=== PATIENT | male | born 1985 | race Caucasian/White ===

== ENCOUNTER → 2018-01-02 | Outpatient (CLI) | payer BC ==
--- NOTE | 2018-01-02 11:02 | DIAGNOSTIC IMAGING REPORT ---
LEFT FOOT 3 VIEWS HISTORY: Left foot injury and pain. COMPARISON: None. FINDINGS: There is no fracture or dislocation. Soft tissue swelling medially. The Lisfranc joint is well aligned. Cystic focus at the base of the proximal pharynx of the first toe. This may be due to an old injury or degenerative change. No radiopaque foreign bodies. IMPRESSION: No fractures. Electronically signed by: Yuval Fry M.D. 01/02/2018 11:00 AM Dictated Date/Time: 01/02/2018 10:59 AM
== END | disposition home or self-care (01) ==
LOC: C.RAD1850 10:37
PROVIDERS: ATTEND Internal Medicine
DX: S99.922A Unspecified injury of left foot, initial encounter (principal); X58.XXXA Exposure to other specified factors, initial encounter